=== PATIENT | male | born 2000 | race African-American/Black ===

== ENCOUNTER 2018-01-04 14:54 | Emergency (ER) | payer SELFPAY ==
[~2018-01-04] VITALS: Ht 188 cm; Wt 68.2 kg
[2018-01-04 15:06] VITALS: BP 116/62; TEMP 98.6
[2018-01-04] MEDS ORDERED: TRIAMCINOLONE A15 GM TP (16:41)
[2018-01-04 16:55] VITALS: PULSE 75
== END 2018-01-04 16:55 | disposition home or self-care (01) ==
LOC: COL.ER 14:54
DX: R21 Rash and other nonspecific skin eruption (principal)